=== PATIENT | male | born 1950 | race Caucasian/White ===

== ENCOUNTER 2023-08-14 14:45 | Inpatient (IN) | payer MEDICARE, OTHER ==
[~2023-08-14] VITALS: Ht 182.9 cm; Wt 87.1 kg
[2023-08-14 21:40] VITALS: BP 92/49; TEMP 98.3; O2SAT 99
[2023-08-14] MEDS ORDERED: ENOX40DI SQ (22:42)
[2023-08-14] MEDS ORDERED: BUPR-53 PO (22:42)
[2023-08-14] MEDS ORDERED: ACET325C7 PO (22:42)
[2023-08-14] MEDS ORDERED: HYDR-4075 IV (22:42)
[2023-08-14] MEDS ORDERED: LISI10TA29 PO (22:42)
[2023-08-14] MEDS ORDERED: LORA0.5T48 PO (22:42)
[2023-08-14] MEDS ORDERED: ONDA4SOL PO (22:42)
[2023-08-14] MEDS ORDERED: SERT50TA PO (22:42)
[2023-08-14] MEDS ORDERED: FINA5TAB11 PO (22:42)
[2023-08-14] MEDS ORDERED: DOXA4TAB3 PO (22:42)
[2023-08-15] MEDS ORDERED: DEXTROSE 50% 50 ML DISP.SYRIN IV PRN (01:00)
[2023-08-15] MEDS: BLOOD SUGAR DIAGNOSTIC 1 EACH STRIP VI SCH (06:39)
[2023-08-15 07:54] VITALS: BP 114/54; TEMP 98.8; O2SAT 99
[2023-08-15] MEDS: INSULIN REGULAR, HUMAN 300 UNIT/3 ML VIAL SQ PRN (08:10)
[2023-08-15] MEDS: buPROPion XL 150 MG TAB.SR.24H PO SCH (08:49)
[2023-08-15] MEDS: OXYCODONE HCL 5 MG TABLET PO PRN (08:49)
[2023-08-15] MEDS: FINASTERIDE 5 MG TABLET PO SCH (08:50)
[2023-08-15] MEDS: SERTRALINE HCL 100 MG TABLET PO SCH (08:50)
[2023-08-15] MEDS: ENOXAPARIN SODIUM 40 MG/0.4 ML DISP.SYRIN SQ SCH (08:57)
[2023-08-15] MEDS: DOXAZOSIN 2 MG TABLET PO SCH ×2 (09:00→22:20)
[2023-08-15] MEDS: REMEDY ESSENTIAL ZINC PASTE 113 GM TOP SCH (09:01)
[2023-08-15 16:07] VITALS: BP 108/51; TEMP 97.8; O2SAT 99
[2023-08-15] MEDS ORDERED: SITA50TA PO (16:55)
[2023-08-15] MEDS ORDERED: METF-495 PO (16:55)
[2023-08-15] MEDS ORDERED: EMPA10TA PO (16:55)
[2023-08-15] MEDS ORDERED: INSU100I24 SQ (17:03)
[2023-08-15] MEDS ORDERED: CAPT25TA3 PO (17:30)
[2023-08-15] MEDS: METFORMIN XR 500 MG TAB.SR.24H PO SCH (18:16)
[2023-08-16 06:03] VITALS: BP 135/55; TEMP 98.2; O2SAT 100
[2023-08-16] MEDS ORDERED: Medication Not On Formulary EA (Sitagliptin Phosphate (Januvia) 50 MG) PO SCH (09:00)
[2023-08-16] MEDS ORDERED: Medication Not On Formulary EA (Empagliflozin (Jardiance) 10 MG) PO SCH (09:00)
[2023-08-16] MEDS ORDERED: JARDIANCE 10 MG PO SCH (09:00)
[2023-08-16] MEDS: OXYCODONE HCL 5 MG TABLET PO PRN (13:55)
[2023-08-16] MEDS: BISACODYL 10 MG SUPP.RECT RC PRN (14:57)
[2023-08-16] MEDS: JANUVIA 50 MG PO SCH (15:19)
[2023-08-16] MEDS: JARDIANCE 10 MG PO SCH (15:19)
[2023-08-16] MEDS: PROTEIN SUPPLEMENT (PROSTAT) 30 ML LIQUID PO SCH (17:28)
[2023-08-16 17:36] VITALS: BP 125/60; TEMP 98.2; O2SAT 98
[2023-08-16 19:45] VITALS: BP 129/65; TEMP 98.4; O2SAT 98
[2023-08-16] MEDS: DOCUSATE SODIUM 100 MG CAPSULE PO SCH (21:15)
[2023-08-16] MEDS: DRONABINOL 2.5 MG CAPSULE PO SCH (21:15)
[2023-08-16] MEDS: INSULIN GLARGINE,HUM 300 UNITS/3 ML CARTRIDGE SQ SCH (22:08)
[2023-08-16] MEDS: INSULIN REGULAR, HUMAN 300 UNITS/3 ML VIAL SQ PRN (22:17)
[2023-08-17] VITALS (8 sets, daily range): BP systolic 118–142; BP diastolic 55–74; TEMP 97.7–99.1; O2SAT 96
[2023-08-17 07:18] LABS: IRON, SERUM 20 ug/dL (50-175)
[2023-08-17 07:21] LABS: DIFFERENTIAL COMMENT 0; NEUTROPHILS # (AUTO) 5.2 K/uL (1.8-8.9)
[2023-08-17 07:23] LABS: THYROID STIMULATING HORMONE 0.253 mIU/mL (0.358-3.740)
[2023-08-17 07:31] LABS: BASOPHILS % (AUTO) 0.4 % (0.0-2.0); EOSINOPHILS # (AUTO) 0.2 K/uL (0.0-0.7); EOSINOPHILS % (AUTO) 2.2 % (0.0-7.0); LYMPHOCYTES # (AUTO) 1.2 K/uL (0.8-4.8); LYMPHOCYTES % (AUTO) 16.7 % (20.5-51.5); MEAN CORPUSCULAR HEMOGLOBIN 31.5 uug (23.8-33.4); MEAN CORPUSCULAR HGB CONC 36 g/dL (32.5-36.3); MEAN CORPUSCULAR VOLUME 87.7 fL (73.0-96.2); MONOCYTES # (AUTO) 0.6 K/uL (0.1-1.30); NEUTROPHILS % (AUTO) 72.7 % (38.5-71.5); PLATELET COUNT (AUTO) 290 K/uL (152-348); RED CELL DISTRIBUTION WIDTH 13.5 % (12.1-16.2)
[2023-08-17 08:14] LABS: ALANINE AMINOTRANSFERASE 33 U/L (16-63); ALBUMIN 2.5 g/dL (3.4-5.0); ALKALINE PHOSPHATASE 38 U/L (50-136); ASPARTATE AMINOTRANSFERASE 27 U/L (15-37); BILIRUBIN,TOTAL 0.9 mg/dL (0.2-1.0); CALCIUM 8.1 mg/dL (8.5-10.1); CARBON DIOXIDE 29 mmol/L (21-32); CHLORIDE 99 mmol/L (98-107); CHOLESTEROL 140 mg/dL (<200); CREATININE 0.7 mg/dL (0.6-1.3); GLUCOSE 139 mg/dL (74-106); HDL CHOLESTEROL 37 mg/dL (40-60); MAGNESIUM 2.5 mg/dL (1.8-2.4); POTASSIUM 3.6 mmol/L (3.5-5.1); SODIUM SERUM 137 mmol/L (136-145); TOTAL PROTEIN, SERUM 5.5 g/dL (6.4-8.2); TRIGLYCERIDES 132 MG/DL (30-150); UREA NITROGEN, BLOOD 22 mg/dL (7-18)
[2023-08-17 08:17] LABS: RED BLOOD CELL COUNT(AUTO) 2.06 MIL/uL (4.06-5.63)
[2023-08-17 08:18] LABS: HEMATOCRIT 18.1 % (36.7-47.1); HEMOGLOBIN 6.5 g/dL (12.5-16.3)
[2023-08-17 08:27] LABS: WHITE BLOOD COUNT (AUTO) 7.1 K/uL (3.6-10.2)
[2023-08-17] MEDS: ACETAMINOPHEN 325 MG TABLET PO PRN (09:28)
[2023-08-17 10:13] LABS: BAND % (MANUAL) 5 % (0-10); LYMPHOCYTES % (MANUAL) 17 % (20-40); NEUTROPHILS % (MANUAL) 72 % (42-75)
[2023-08-17 10:14] LABS: ANISOCYTOSIS 1+; MONOCYTES % (MANUAL) 6 % (2-10); PLATELET ESTIMATE ADEQUATE
[2023-08-18] MEDS: PROTEIN SUPPLEMENT (PROSTAT) 30 ML LIQUID PO SCH (08:02)
[2023-08-18 11:11] LABS: BASOPHILS # (AUTO) 0.1 K/UL (0.0-0.2); BASOPHILS % (AUTO) 0.6 % (0.0-2.0); EOSINOPHILS # (AUTO) 0.1 K/uL (0.0-0.7); EOSINOPHILS % (AUTO) 1.4 % (0.0-7.0); HEMATOCRIT 22.3 % (36.7-47.1); HEMOGLOBIN 7.9 g/dL (12.5-16.3); LYMPHOCYTES # (AUTO) 1.2 K/uL (0.8-4.8); MEAN CORPUSCULAR HEMOGLOBIN 31.4 uug (23.8-33.4); MEAN CORPUSCULAR HGB CONC 35 g/dL (32.5-36.3); MEAN CORPUSCULAR VOLUME 88.5 fL (73.0-96.2); MONOCYTES # (AUTO) 0.7 K/uL (0.1-1.30); MONOCYTES % (AUTO) 7.2 % (0.0-11.0); NEUTROPHILS # (AUTO) 7.2 K/uL (1.8-8.9); NEUTROPHILS % (AUTO) 77.8 % (38.5-71.5); PLATELET COUNT (AUTO) 339 K/uL (152-348); RED BLOOD CELL COUNT(AUTO) 2.52 MIL/uL (4.06-5.63); RED CELL DISTRIBUTION WIDTH 13.4 % (12.1-16.2); WHITE BLOOD COUNT (AUTO) 9.2 K/uL (3.6-10.2)
[2023-08-18 11:18] LABS: DIFFERENTIAL COMMENT 1
[2023-08-18 13:11] LABS: BILIRUBIN,DIRECT 0.2 mg/dL (0.0-0.2)
[2023-08-18 16:16] VITALS: BP 137/65; TEMP 98
[2023-08-18 18:28] LABS: HEMATOCRIT 22.9 % (36.7-47.1)
[2023-08-18] MEDS: ZOLPIDEM 5 MG TABLET PO PRN (22:10)
[2023-08-19 04:25] VITALS: O2SAT 98
[2023-08-19 06:00] VITALS: BP 124/66; TEMP 98.4; O2SAT 97
[2023-08-19 07:25] LABS: BASOPHILS % (AUTO) 0.5 % (0.0-2.0); EOSINOPHILS # (AUTO) 0.3 K/uL (0.0-0.7); EOSINOPHILS % (AUTO) 2.9 % (0.0-7.0); HEMATOCRIT 22.8 % (36.7-47.1); HEMOGLOBIN 8.1 g/dL (12.5-16.3); LYMPHOCYTES # (AUTO) 1.8 K/uL (0.8-4.8); LYMPHOCYTES % (AUTO) 18.5 % (20.5-51.5); MEAN CORPUSCULAR HEMOGLOBIN 31.3 uug (23.8-33.4); MEAN CORPUSCULAR HGB CONC 35 g/dL (32.5-36.3); MEAN CORPUSCULAR VOLUME 88.5 fL (73.0-96.2); MONOCYTES # (AUTO) 0.6 K/uL (0.1-1.30); MONOCYTES % (AUTO) 6.4 % (0.0-11.0); NEUTROPHILS % (AUTO) 71.7 % (38.5-71.5); PLATELET COUNT (AUTO) 392 K/uL (152-348); RED BLOOD CELL COUNT(AUTO) 2.58 MIL/uL (4.06-5.63); RED CELL DISTRIBUTION WIDTH 13.4 % (12.1-16.2); WHITE BLOOD COUNT (AUTO) 9.8 K/uL (3.6-10.2)
[2023-08-19 07:43] LABS: DIFFERENTIAL COMMENT 1
[2023-08-19 11:42] VITALS: O2SAT 97
[2023-08-19 12:07] LABS: FREE KAPPA LT CHAINS SERUM 15.6 mg/L (3.3-19.4); KAPPA/LAMBDA RATIO SERUM 0.98 (0.26-1.65)
[2023-08-19 15:56] VITALS: BP 136/60; TEMP 98; O2SAT 97
[2023-08-19] MEDS: SOD FERRIC GLUC COMPLX/SUCROSE 125 MG in IV NORMAL SALINE 100 ML IV SCH (19:04)
[2023-08-19 20:00] VITALS: BP 133/57; TEMP 98.8; O2SAT 97
[2023-08-20 06:00] VITALS: BP 122/61; TEMP 98.2; O2SAT 95
[2023-08-20 06:30] LABS: BASOPHILS % (AUTO) 0.5 % (0.0-2.0); EOSINOPHILS # (AUTO) 0.2 K/uL (0.0-0.7); EOSINOPHILS % (AUTO) 2.4 % (0.0-7.0); HEMATOCRIT 25.3 % (36.7-47.1); HEMOGLOBIN 8.9 g/dL (12.5-16.3); LYMPHOCYTES # (AUTO) 1.9 K/uL (0.8-4.8); LYMPHOCYTES % (AUTO) 18.9 % (20.5-51.5); MEAN CORPUSCULAR HEMOGLOBIN 31.7 uug (23.8-33.4); MEAN CORPUSCULAR HGB CONC 35 g/dL (32.5-36.3); MEAN CORPUSCULAR VOLUME 89.7 fL (73.0-96.2); MONOCYTES # (AUTO) 0.7 K/uL (0.1-1.30); MONOCYTES % (AUTO) 7.1 % (0.0-11.0); NEUTROPHILS # (AUTO) 7.1 K/uL (1.8-8.9); NEUTROPHILS % (AUTO) 71.1 % (38.5-71.5); PLATELET COUNT (AUTO) 447 K/uL (152-348); RED BLOOD CELL COUNT(AUTO) 2.82 MIL/uL (4.06-5.63); RED CELL DISTRIBUTION WIDTH 13.8 % (12.1-16.2); WHITE BLOOD COUNT (AUTO) 9.9 K/uL (3.6-10.2)
[2023-08-20 07:01] LABS: DIFFERENTIAL COMMENT 1
[2023-08-20] MEDS: ASPIRIN 325 MG TABLET PO SCH (08:24)
[2023-08-20] MEDS: FOLIC ACID 1 MG TABLET PO SCH (08:24)
[2023-08-20 14:00] VITALS: O2SAT 98
[2023-08-20] MEDS ORDERED: SOD FERRIC GLUC COMPLX/SUCROSE 125 MG in IV NORMAL SALINE 100 ML IV SCH (14:00)
[2023-08-20 16:25] VITALS: BP 131/61; TEMP 98.5; O2SAT 97
[2023-08-20 20:00] VITALS: BP 121/58; TEMP 99; O2SAT 95
[2023-08-21 01:34] VITALS: O2SAT 98
[2023-08-21 06:00] VITALS: BP 116/56; TEMP 98.3; O2SAT 96
[2023-08-21 07:20] LABS: BASOPHILS # (AUTO) 0.1 K/UL (0.0-0.2); BASOPHILS % (AUTO) 0.5 % (0.0-2.0); EOSINOPHILS # (AUTO) 0.3 K/uL (0.0-0.7); EOSINOPHILS % (AUTO) 2.6 % (0.0-7.0); HEMATOCRIT 25.3 % (36.7-47.1); HEMOGLOBIN 8.9 g/dL (12.5-16.3); LYMPHOCYTES # (AUTO) 1.9 K/uL (0.8-4.8); MEAN CORPUSCULAR HEMOGLOBIN 31.6 uug (23.8-33.4); MEAN CORPUSCULAR HGB CONC 35 g/dL (32.5-36.3); MEAN CORPUSCULAR VOLUME 89.6 fL (73.0-96.2); MONOCYTES # (AUTO) 0.7 K/uL (0.1-1.30); MONOCYTES % (AUTO) 6.7 % (0.0-11.0); NEUTROPHILS # (AUTO) 7.5 K/uL (1.8-8.9); NEUTROPHILS % (AUTO) 72.2 % (38.5-71.5); PLATELET COUNT (AUTO) 477 K/uL (152-348); RED BLOOD CELL COUNT(AUTO) 2.82 MIL/uL (4.06-5.63); RED CELL DISTRIBUTION WIDTH 14.4 % (12.1-16.2); WHITE BLOOD COUNT (AUTO) 10.3 K/uL (3.6-10.2)
[2023-08-21 07:38] LABS: DIFFERENTIAL COMMENT 1
[2023-08-21 11:10] LABS: *IMMUNOGLOBULIN G, SERUM 449 mg/dL (603-1613); IMMUNOGLOBULIN A, SERUM 150 mg/dL (61-437); IMMUNOGLOBULIN M, SERUM 28 mg/dL (15-143)
[2023-08-21 11:56] VITALS: BP 120/65; TEMP 98; O2SAT 96
[2023-08-21 16:20] VITALS: BP 116/63; TEMP 97.9; O2SAT 93
[2023-08-21 20:13] VITALS: BP 120/66; TEMP 98.4; O2SAT 96
[2023-08-21] MEDS: ENOXAPARIN SODIUM 40 MG/0.4 ML DISP.SYRIN SQ SCH (20:27)
[2023-08-22 04:00] VITALS: BP 115/63; TEMP 98.1; O2SAT 97
[2023-08-22 05:48] LABS: BASOPHILS # (AUTO) 0.1 K/UL (0.0-0.2); BASOPHILS % (AUTO) 0.6 % (0.0-2.0); EOSINOPHILS # (AUTO) 0.2 K/uL (0.0-0.7); EOSINOPHILS % (AUTO) 2.3 % (0.0-7.0); HEMATOCRIT 26.2 % (36.7-47.1); HEMOGLOBIN 9.1 g/dL (12.5-16.3); LYMPHOCYTES % (AUTO) 18.9 % (20.5-51.5); MEAN CORPUSCULAR HEMOGLOBIN 31.2 uug (23.8-33.4); MEAN CORPUSCULAR HGB CONC 35 g/dL (32.5-36.3); MONOCYTES # (AUTO) 0.8 K/uL (0.1-1.30); MONOCYTES % (AUTO) 7.4 % (0.0-11.0); NEUTROPHILS # (AUTO) 7.6 K/uL (1.8-8.9); NEUTROPHILS % (AUTO) 70.8 % (38.5-71.5); PLATELET COUNT (AUTO) 472 K/uL (152-348); RED BLOOD CELL COUNT(AUTO) 2.91 MIL/uL (4.06-5.63); RED CELL DISTRIBUTION WIDTH 14.2 % (12.1-16.2); WHITE BLOOD COUNT (AUTO) 10.8 K/uL (3.6-10.2)
[2023-08-22 05:57] LABS: DIFFERENTIAL COMMENT 1
[2023-08-22 11:57] VITALS: O2SAT 97
[2023-08-22 16:33] VITALS: BP 130/61; TEMP 98.9; O2SAT 96
[2023-08-22 20:35] VITALS: O2SAT 97
[2023-08-23 06:15] VITALS: BP 122/65; TEMP 98.7
[2023-08-23 07:13] LABS: BASOPHILS % (AUTO) 0.4 % (0.0-2.0); DIFFERENTIAL COMMENT 0; EOSINOPHILS # (AUTO) 0.2 K/uL (0.0-0.7); EOSINOPHILS % (AUTO) 2.5 % (0.0-7.0); HEMATOCRIT 28.9 % (36.7-47.1); HEMOGLOBIN 9.9 g/dL (12.5-16.3); LYMPHOCYTES # (AUTO) 1.8 K/uL (0.8-4.8); LYMPHOCYTES % (AUTO) 20.4 % (20.5-51.5); MEAN CORPUSCULAR HEMOGLOBIN 31.2 uug (23.8-33.4); MEAN CORPUSCULAR HGB CONC 34 g/dL (32.5-36.3); MONOCYTES # (AUTO) 0.7 K/uL (0.1-1.30); MONOCYTES % (AUTO) 8.3 % (0.0-11.0); NEUTROPHILS % (AUTO) 68.4 % (38.5-71.5); PLATELET COUNT (AUTO) 496 K/uL (152-348); RED BLOOD CELL COUNT(AUTO) 3.18 MIL/uL (4.06-5.63); RED CELL DISTRIBUTION WIDTH 14.8 % (12.1-16.2); WHITE BLOOD COUNT (AUTO) 8.8 K/uL (3.6-10.2)
[2023-08-23 09:11] LABS: CREATININE 0.8 mg/dL (0.6-1.3); UREA NITROGEN, BLOOD 18 mg/dL (7-18)
[2023-08-23] MEDS ORDERED: IOHEXOL 300MG/ML 100 ML INFUS..BTL ONE (09:35)
[2023-08-23] MEDS ORDERED: IV NORMAL SALINE 250 ML IV ONE (09:36)
[2023-08-23] MEDS ORDERED: SWABABLE VALVE TRANSFER SET EA MC ONE (09:36)
[2023-08-23 12:00] VITALS: BP 118/72; TEMP 98.2; O2SAT 94
[2023-08-23 15:00] VITALS: O2SAT 97
[2023-08-23 16:00] VITALS: BP 117/62; TEMP 98; O2SAT 99
[2023-08-23 20:00] VITALS: BP 126/64; TEMP 98; O2SAT 97
[2023-08-24 06:34] VITALS: BP 108/64; TEMP 97.7; O2SAT 98
[2023-08-24 13:37] LABS: BASOPHILS % (AUTO) 0.4 % (0.0-2.0); EOSINOPHILS # (AUTO) 0.1 K/uL (0.0-0.7); EOSINOPHILS % (AUTO) 1.2 % (0.0-7.0); HEMATOCRIT 32.3 % (36.7-47.1); HEMOGLOBIN 10.9 g/dL (12.5-16.3); LYMPHOCYTES # (AUTO) 1.3 K/uL (0.8-4.8); LYMPHOCYTES % (AUTO) 11.3 % (20.5-51.5); MEAN CORPUSCULAR HEMOGLOBIN 31.1 uug (23.8-33.4); MEAN CORPUSCULAR HGB CONC 34 g/dL (32.5-36.3); MONOCYTES # (AUTO) 0.6 K/uL (0.1-1.30); MONOCYTES % (AUTO) 5.6 % (0.0-11.0); NEUTROPHILS # (AUTO) 9.1 K/uL (1.8-8.9); NEUTROPHILS % (AUTO) 81.5 % (38.5-71.5); PLATELET COUNT (AUTO) 543 K/uL (152-348); RED BLOOD CELL COUNT(AUTO) 3.51 MIL/uL (4.06-5.63); WHITE BLOOD COUNT (AUTO) 11.1 K/uL (3.6-10.2)
[2023-08-24 13:48] VITALS: O2SAT 97
[2023-08-24 16:33] VITALS: BP 126/67; TEMP 98.5; O2SAT 95
[2023-08-24 19:35] VITALS: BP 125/60; TEMP 97.6; O2SAT 94
[2023-08-24] MEDS: AMOXICILLIN-CLAVUL 500-125MG TABLET PO SCH (20:36)
[2023-08-25 05:06] VITALS: O2SAT 97
[2023-08-25 05:49] LABS: BASOPHILS # (AUTO) 0.1 K/UL (0.0-0.2); BASOPHILS % (AUTO) 0.5 % (0.0-2.0); EOSINOPHILS # (AUTO) 0.2 K/uL (0.0-0.7); HEMATOCRIT 29.2 % (36.7-47.1); HEMOGLOBIN 10.1 g/dL (12.5-16.3); LYMPHOCYTES # (AUTO) 1.6 K/uL (0.8-4.8); LYMPHOCYTES % (AUTO) 16.6 % (20.5-51.5); MEAN CORPUSCULAR HEMOGLOBIN 31.7 uug (23.8-33.4); MEAN CORPUSCULAR HGB CONC 35 g/dL (32.5-36.3); MEAN CORPUSCULAR VOLUME 91.3 fL (73.0-96.2); MONOCYTES # (AUTO) 0.7 K/uL (0.1-1.30); NEUTROPHILS # (AUTO) 7.1 K/uL (1.8-8.9); NEUTROPHILS % (AUTO) 73.9 % (38.5-71.5); PLATELET COUNT (AUTO) 457 K/uL (152-348); RED BLOOD CELL COUNT(AUTO) 3.19 MIL/uL (4.06-5.63); RED CELL DISTRIBUTION WIDTH 14.9 % (12.1-16.2); WHITE BLOOD COUNT (AUTO) 9.6 K/uL (3.6-10.2)
[2023-08-25 06:32] VITALS: BP 122/64; TEMP 97.6; O2SAT 96
[2023-08-25 06:45] LABS: IRON, SERUM 40 ug/dL (50-175)
[2023-08-25 06:57] LABS: FERRITIN 824 ng/mL (26-388)
[2023-08-25 07:26] LABS: DIFFERENTIAL COMMENT 1
[2023-08-25 16:31] VITALS: BP 111/60; TEMP 98.7; O2SAT 94
[2023-08-25 20:00] VITALS: TEMP 98.4
[2023-08-26 03:09] LABS: A/G RATIO 0.9 (0.7-1.7); ALBUMIN 2.4 g/dL (2.9-4.4); ALPHA-1-GLOBULIN 0.4 g/dL (0.0-0.4); ALPHA-2-GLOBULIN 1.1 g/dL (0.4-1.0); BETA GLOBULIN 0.7 g/dL (0.7-1.3); GAMMA GLOBULIN 0.6 g/dL (0.4-1.8); GLOBULIN, TOTAL 2.7 g/dL (2.2-3.9); M-SPIKE Not Observed g/dL (Not Observed)
[2023-08-26 06:00] VITALS: TEMP 98.6
[2023-08-26 06:48] LABS: BASOPHILS # (AUTO) 0.1 K/UL (0.0-0.2); BASOPHILS % (AUTO) 0.7 % (0.0-2.0); EOSINOPHILS # (AUTO) 0.2 K/uL (0.0-0.7); HEMATOCRIT 30.3 % (36.7-47.1); HEMOGLOBIN 10.5 g/dL (12.5-16.3); LYMPHOCYTES # (AUTO) 1.8 K/uL (0.8-4.8); LYMPHOCYTES % (AUTO) 16.8 % (20.5-51.5); MEAN CORPUSCULAR HEMOGLOBIN 31.6 uug (23.8-33.4); MEAN CORPUSCULAR HGB CONC 35 g/dL (32.5-36.3); MEAN CORPUSCULAR VOLUME 91.5 fL (73.0-96.2); MONOCYTES # (AUTO) 0.8 K/uL (0.1-1.30); MONOCYTES % (AUTO) 7.3 % (0.0-11.0); NEUTROPHILS # (AUTO) 7.8 K/uL (1.8-8.9); NEUTROPHILS % (AUTO) 73.2 % (38.5-71.5); PLATELET COUNT (AUTO) 506 K/uL (152-348); RED BLOOD CELL COUNT(AUTO) 3.31 MIL/uL (4.06-5.63); RED CELL DISTRIBUTION WIDTH 15.4 % (12.1-16.2); WHITE BLOOD COUNT (AUTO) 10.6 K/uL (3.6-10.2)
[2023-08-26 06:55] LABS: DIFFERENTIAL COMMENT 1
[2023-08-26 08:00] VITALS: BP 123/65; TEMP 98.2; O2SAT 99
[2023-08-26 08:39] VITALS: BP 112/68; TEMP 98.6; O2SAT 95
[2023-08-26 12:00] VITALS: BP 119/70; TEMP 97; O2SAT 96
[2023-08-26] MEDS: BACITRACIN/POLYMYXIN B OINT 15 GM TUBE TOP SCH (16:02)
[2023-08-26] MEDS: METFORMIN XR 500 MG TAB.SR.24H PO SCH (17:20)
[2023-08-27 07:43] LABS: BASOPHILS # (AUTO) 0.1 K/UL (0.0-0.2); BASOPHILS % (AUTO) 0.8 % (0.0-2.0); EOSINOPHILS # (AUTO) 0.2 K/uL (0.0-0.7); EOSINOPHILS % (AUTO) 1.8 % (0.0-7.0); HEMOGLOBIN 10.6 g/dL (12.5-16.3); LYMPHOCYTES # (AUTO) 1.7 K/uL (0.8-4.8); LYMPHOCYTES % (AUTO) 18.2 % (20.5-51.5); MEAN CORPUSCULAR HEMOGLOBIN 31.5 uug (23.8-33.4); MEAN CORPUSCULAR HGB CONC 34 g/dL (32.5-36.3); MEAN CORPUSCULAR VOLUME 91.8 fL (73.0-96.2); MONOCYTES # (AUTO) 0.6 K/uL (0.1-1.30); MONOCYTES % (AUTO) 6.5 % (0.0-11.0); NEUTROPHILS # (AUTO) 6.9 K/uL (1.8-8.9); NEUTROPHILS % (AUTO) 72.7 % (38.5-71.5); PLATELET COUNT (AUTO) 453 K/uL (152-348); RED BLOOD CELL COUNT(AUTO) 3.38 MIL/uL (4.06-5.63); RED CELL DISTRIBUTION WIDTH 15.8 % (12.1-16.2); WHITE BLOOD COUNT (AUTO) 9.5 K/uL (3.6-10.2)
[2023-08-27 07:45] LABS: DIFFERENTIAL COMMENT 1
[2023-08-27 16:00] VITALS: BP 129/75; TEMP 98.1; O2SAT 95
[2023-08-27 20:55] VITALS: BP 119/61; TEMP 98.1; O2SAT 95
[2023-08-27 20:56] VITALS: O2SAT 95
[2023-08-28 06:12] VITALS: BP 119/62; TEMP 98.2; O2SAT 97
[2023-08-28 12:00] VITALS: BP 124/68; TEMP 98.5; O2SAT 96
[2023-08-28 16:00] VITALS: BP 115/66; TEMP 98.1; O2SAT 96
[2023-08-28] MEDS: LIDOCAINE 5% PATCH TD SCH (16:52)
[2023-08-28 20:00] VITALS: BP 115/66; TEMP 98; TEMP 98.6; O2SAT 99
[2023-08-28] MEDS: DOXYCYCLINE HYCLATE 100 MG TABLET PO SCH (22:27)
[2023-08-29 04:00] VITALS: BP 141/71; TEMP 98.2; O2SAT 100
[2023-08-29 08:06] LABS: IMMUNOGLOBULIN A, SERUM 251 mg/dL (61-437); IMMUNOGLOBULIN M, SERUM 92 mg/dL (15-143)
[2023-08-29 16:11] VITALS: BP 118/70; TEMP 99; O2SAT 95
[2023-08-29 20:00] VITALS: BP 123/64; TEMP 98.9; O2SAT 94
[2023-08-30 04:00] VITALS: BP 117/61; TEMP 98.7; O2SAT 94
[2023-08-30 07:35] LABS: BASOPHILS # (AUTO) 0.1 K/UL (0.0-0.2); BASOPHILS % (AUTO) 0.8 % (0.0-2.0); EOSINOPHILS # (AUTO) 0.2 K/uL (0.0-0.7); EOSINOPHILS % (AUTO) 2.8 % (0.0-7.0); HEMATOCRIT 32.1 % (36.7-47.1); HEMOGLOBIN 10.9 g/dL (12.5-16.3); LYMPHOCYTES # (AUTO) 1.5 K/uL (0.8-4.8); LYMPHOCYTES % (AUTO) 22.7 % (20.5-51.5); MEAN CORPUSCULAR HEMOGLOBIN 31.7 uug (23.8-33.4); MEAN CORPUSCULAR HGB CONC 34 g/dL (32.5-36.3); MONOCYTES # (AUTO) 0.4 K/uL (0.1-1.30); NEUTROPHILS # (AUTO) 4.5 K/uL (1.8-8.9); NEUTROPHILS % (AUTO) 67.7 % (38.5-71.5); PLATELET COUNT (AUTO) 420 K/uL (152-348); RED BLOOD CELL COUNT(AUTO) 3.45 MIL/uL (4.06-5.63); RED CELL DISTRIBUTION WIDTH 16.3 % (12.1-16.2); WHITE BLOOD COUNT (AUTO) 6.6 K/uL (3.6-10.2)
[2023-08-30 07:47] LABS: DIFFERENTIAL COMMENT 1
[2023-08-30 07:55] LABS: ALANINE AMINOTRANSFERASE 41 U/L (16-63); ALBUMIN 3.1 g/dL (3.4-5.0); ALKALINE PHOSPHATASE 120 U/L (50-136); ASPARTATE AMINOTRANSFERASE 19 U/L (15-37); BILIRUBIN,TOTAL 0.7 mg/dL (0.2-1.0); CALCIUM 8.8 mg/dL (8.5-10.1); CARBON DIOXIDE 28 mmol/L (21-32); CHLORIDE 102 mmol/L (98-107); CREATININE 0.8 mg/dL (0.6-1.3); GLUCOSE 120 mg/dL (74-106); POTASSIUM 4.1 mmol/L (3.5-5.1); SODIUM SERUM 137 mmol/L (136-145); TOTAL PROTEIN, SERUM 6.6 g/dL (6.4-8.2); UREA NITROGEN, BLOOD 23 mg/dL (7-18)
[2023-09-01 13:08] LABS: *IGG SUBCLASS 1 278 mg/dL (248-810); *IGG SUBCLASS 2 329 mg/dL (130-555); *IGG SUBCLASS 3 46 mg/dL (15-102); *IGG SUBCLASS 4 22 mg/dL (2-96); *IMMUNOGLOBULIN G, SERUM 699 mg/dL (603-1613)
[2023-09-03 11:12] LABS: IMMUNOGLOBULIN E, TOTAL 41 IU/mL (6-495)
== END 2023-08-30 14:05 | disposition home health service (06) | DRG 559 ==
PROVIDERS: ADMIT Physical Medicine & Rehabilitation Pain Medicine; ATTEND Physical Medicine & Rehabilitation Pain Medicine
PROC: 30233N1 Transfusion of Nonautologous Red Blood Cells into Peripheral Vein, Percutaneous Approach (ICD-10-PCS; principal; 2023-08-17)
DX: S72.142D Displaced intertrochanteric fracture of left femur, subsequent encounter for closed fracture with routine healing (principal); E43 Unspecified severe protein-calorie malnutrition; D68.59 Other primary thrombophilia; T81.41XA Infection following a procedure, superficial incisional surgical site, initial encounter; L03.116 Cellulitis of left lower limb; D62 Acute posthemorrhagic anemia; R71.0 Precipitous drop in hematocrit; W01.0XXD Fall on same level from slipping, tripping and stumbling without subsequent striking against object, subsequent encounter; D50.9 Iron deficiency anemia, unspecified; E11.9 Type 2 diabetes mellitus without complications; J98.4 Other disorders of lung; Y83.8 Other surgical procedures as the cause of abnormal reaction of the patient, or of later complication, without mention of misadventure at the time of the procedure; Y92.230 Patient room in hospital as the place of occurrence of the external cause; E88.09 Other disorders of plasma-protein metabolism, not elsewhere classified; I10 Essential (primary) hypertension; K59.00 Constipation, unspecified; N40.0 Benign prostatic hyperplasia without lower urinary tract symptoms; Z87.891 Personal history of nicotine dependence; Z68.28 Body mass index [BMI] 28.0-28.9, adult
CPT/HCPCS: 36415; 70030-TC; 71270; 73700; 82378; 82784; 82785; 83010; 83550; 83615; 83735; 84100; 84155; 84165; 84443; 84520; 85018; 85025; 86334; 86850; 86880; 86900; 86901; 86920; 87806; 88185; 97535-GO-CO; C1758; J1650; J1815; J2916; P9016; Q0167; Q9967